=== PATIENT | male | born 1960 | race Caucasian/White ===

== ENCOUNTER 2018-11-22 23:23 | Emergency (ER) | payer MEDICAID ==
[~2018-11-22] VITALS: Ht 170.2 cm; Wt 106.6 kg
[2018-11-23] MEDS ORDERED: VANCOMYCIN IV 1,000 MG in IV DEXTROSE 5% 250 ML IV ONE (00:15)
[2018-11-23] MEDS ORDERED: VANCOMYCIN IV 200 ML ONE (00:25)
--- NOTE | 2018-11-23 00:31 | NUR ---
pATIENT IN BED, NO ACUTE DISTRESS NOTED. VSS
--- NOTE | 2018-11-23 01:23 | NUR ---
IV Abx ongoing, well tolerated by patient. Visitor at bedside. no acute distress noted. RR even and unlabored. No cardiovascular distress noted
--- NOTE | 2018-11-23 02:27 | NUR ---
Patient discharged to home in stable conditon. Written and verbal after care instructions given. Patient verbalizes understanding of instructions. Ambulated from ER with stable gait. All belongings with patient. Peripheral IV removed.
[2018-11-23 02:28] VITALS: BP 148/81
== END 2018-11-23 02:28 | disposition home or self-care (01) ==
LOC: ER 23:25
DX: L98.499 Non-pressure chronic ulcer of skin of other sites with unspecified severity (principal); L03.114 Cellulitis of left upper limb; L08.9 Local infection of the skin and subcutaneous tissue, unspecified; J44.9 Chronic obstructive pulmonary disease, unspecified; F17.200 Nicotine dependence, unspecified, uncomplicated; F15.10 Other stimulant abuse, uncomplicated; Z59.0 Homelessness
CPT/HCPCS: 87070; 96365; 96366; 99283; J3370; 87077; A4663